=== PATIENT | male | born 1980 | race Caucasian/White ===

== ENCOUNTER 2016-12-01 05:31 | Emergency (ER) | payer OTHER ==
[~2016-12-01] VITALS: Wt 93.0 kg
[2016-12-01] MEDS ORDERED: SULF1TAB31 PO (06:23)
[2016-12-01] MEDS ORDERED: CEPH-443 PO (06:23)
[2016-12-01] MEDS ORDERED: IBUP-1542 PO (06:23)
[2016-12-01] MEDS ORDERED: KENC1 TOP (06:24)
--- NOTE | 2016-12-01 06:26 | ERD ---
ER Documentation Chief Complaint Date/Time DATE: 12/01/16 TIME: 06:25 Chief Complaint possible bug bite. Infected HPI This 36-year-old male complains of some possible insect bites sustained while working outside with some increasing redness over the last few days. Denies any fevers, vomiting, shortness of the chest pain. His tetanus is not up-to- date. ROS All systems reviewed and are negative except as per history of present illness. Medications Home Meds Active Scripts Triamcinolone Acetonide (Triamcinolone Acetonide) 0.1% - 15 Gm Cream.gm., 1 APPLIC TOP BID for 7 Days, #1 TUB Prov:CARMEN DALTON MD 12/01/16 Sulfamethoxazole/Trimethoprim* (Bactrim Ds* Tablet) 1 Each Tablet, 1 TAB PO BID for 10 Days, #20 TAB Prov:CARMEN DALTON MD 12/01/16 Cephalexin* (Keflex*) 500 Mg Capsule, 500 MG PO QID for 10 Days, CAP Prov:CARMEN DALTON MD 12/01/16 Ibuprofen* (Motrin*) 600 Mg Tab, 600 MG PO Q6, #20 TAB Prov:CARMEN DALTON MD 12/01/16 Allergies Allergies: Coded Allergies: No Known Allergy (Unverified , 12/01/16) PMhx/Soc Medical and Surgical Hx: pt denies Medical Hx, pt denies Surgical Hx Hx Alcohol Use: Yes Hx Substance Use: No Hx Tobacco Use: No Smoking Status: Never smoker Physical Exam Vitals Vital Signs Date Time Temp Pulse Resp B/P Pulse Ox O2 Delivery O2 Flow Rate FiO2 12/01/16 05:37 97.8 94 20 147/95 98 Physical Exam Const: [] Alert, [id number] per Head: Atraumatic Eyes: Normal Conjunctiva ENT: Normal External Ears, Nose and Mouth. Neck: Full range of motion..~ No meningismus. Resp: Clear to auscultation bilaterally Cardio: Regular rate and rhythm, no murmurs Abd: Soft, non tender, non distended. Normal bowel sounds Skin: No petechiae or rashes Back: No midline or flank tenderness Ext: No cyanosis, or edema. On the right [place] there is a 3 areas of small open vesicles with clear yellow exudate. Some surrounding warmth and redness. There is no fluctuance. There is no calf swelling or Homans sign. Neur: Awake and alert Psych: Normal Mood and Affect Results 24 hrs Current Medications Medications (Trade) Dose Ordered Sig/Zhao Route PRN Reason Start Time Stop Time Status Last Admin Dose Admin Cephalexin (Keflex) 500 mg ONCE ONCE PO 12/01/16 06:30 12/01/16 06:31 Trimethoprim/ Sulfamethoxazole (Bactrim (Ds)) 1 tab ONCE ONCE PO 12/01/16 06:30 12/01/16 06:31 Ibuprofen (Motrin) 600 mg ONCE ONCE PO 12/01/16 06:30 12/01/16 06:31 Diphtheria/ Tetanus/Acell Pertussis (Adacel) 0.5 ml ONCE ONCE IM* 12/01/16 06:30 12/01/16 06:31 Procedures/MDM Patient presents with signs and symptoms of cellulitis of his right lower extremity possibly due to insect bites and local reaction. We treated with triamcinolone, Keflex and Bactrim. He was given his first dose of Avelox here we discharged home instructions for elevation recheck in 48 hours for worsening redness, fevers, new worsening symptoms. The patient was stable with no new complaints during the ER course. Clinically, there is no current evidence to suggest meningitis, sepsis, acute abdomen, pneumonia, acute coronary syndrome, pulmonary embolism, or any other emergent condition appearing to require further evaluation or hospitalization. The patient should certainly return for any new or worsening symptoms per the aftercare instructions. They should otherwise follow-up with her primary care doctor for reevaluation this week. Departure Diagnosis: Primary Impression: Cellulitis Site of cellulitis: extremity Site of cellulitis of extremity: lower extremity Laterality: right Qualified Code: L03.115 - Cellulitis of right lower extremity Additional Impression: Insect bites Encounter type: initial encounter Qualified Code: W57.XXXA - Insect bites, initial encounter Condition: Stable Patient Instructions: Insect Sting/Bite, Infected Additional Instructions: Elevated at home. Recheck in 2 days for worsening redness, fevers, new symptoms. CARMEN DALTON MD Dec 01, 2016 06:26
[2016-12-01] MEDS ORDERED: IBUPROFEN 600 MG TAB PO ONE (06:30)
[2016-12-01] MEDS ORDERED: CEPHALEXIN 500 MG CAP PO ONE (06:30)
[2016-12-01] MEDS ORDERED: TRIMETHOPRIM/SULFAMETHOX (DS) TAB PO ONE (06:30)
[2016-12-01] MEDS ORDERED: DIPHTH/TET/ACEL PERTUSS (ADULT) 0.5 ML VIAL IM* ONE (06:30)
== END 2016-12-01 06:45 | disposition home or self-care (01) ==
LOC: FTE 05:31
DX: L03.115 Cellulitis of right lower limb (principal); W57.XXXA Bitten or stung by nonvenomous insect and other nonvenomous arthropods, initial encounter; Y92.9 Unspecified place or not applicable; Z23 Encounter for immunization
CPT/HCPCS: 90471; 90715; Z7502; Z7610